=== PATIENT | female | born 1985 | race Hispanic/Latino ===

== ENCOUNTER 2018-01-09 20:05 | Emergency (ER) | payer SELFPAY ==
--- NOTE | 2018-01-09 20:25 | ER ---
Nurse's Notes [facility] Name: Carie Bhatt Age: 32 yrs Sex: Female : 1985 Arrival Date: 01/09/2018 Time: 20:05 Bed Waiting Private MD: Diagnosis: Presentation: 01/09 20:12 Presenting complaint: Patient states: head pressure x 1week, blurry vision, states pain lp1 behind left eye; sensitivity to light;. Transition of care: patient was not received from another setting of care. Onset of symptoms was January 09, 2018. Care prior to arrival: None. 20:12 Method Of Arrival: Ambulatory lp1 20:12 Acuity: PATRICIA 3 lp1 Triage Assessment: 20:21 General: Appears in no apparent distress. Behavior is appropriate for age. Pain: lp1 Complains of pain in left eye, head Pain currently is 5 out of 10 on a pain scale. Neuro: Level of Consciousness is awake, alert, obeys commands. Respiratory: Respiratory effort is even, unlabored. Derm: Skin is pink, warm \\T\\ dry. 20:21 General: Patient denies need to be seen by provider, states "I just wanted my blood lp1 pressure checked"; educated on seeing provider for further evaluation, patient denies need; . 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 - Social history:: Smoking status: Patient/guardian denies using tobacco. Screenin:16 Abuse screen: Denies threats or abuse. Denies injuries from another. Nutritional lp1 screening: No deficits noted. Tuberculosis screening: No symptoms or risk factors identified. Fall Risk None identified. Vital Signs: 20:14 BP 132 / 96; Pulse 103; Resp 18; Temp 98.9(O); Pulse Ox 98% on R/A; Weight 83.91 kg; lp1 Height 5 ft. 5 in. (165.10 cm); Pain 5/10; 20:14 Body Mass Index 30.79 (83.91 kg, 165.10 cm) lp1 ED Course: 20:05 Patient arrived in ED. ds1 20:14 Triage completed. lp1 20:14 Arm band placed on right wrist. lp1 Administered Medications: No medications were administered Outcome: 20:23 Eloped from waiting room, before seeing physician Time discovered patient gone: January lp1 2017 at 20:23 Patient provided with Sliding scale form for follow up evaluation and returning to ER if symptoms persist 20:25 Patient left the ED. lp1 Signatures: Nenita White ds1 Wanda Murphy, RN RN lp1
== END 2018-01-09 20:25 | disposition left against medical advice (07) ==
LOC: ER 20:05
DX: Z53.21 Procedure and treatment not carried out due to patient leaving prior to being seen by health care provider (principal)
CPT/HCPCS: 99281

== ENCOUNTER 2018-08-15 14:19 | Emergency (ER) | payer SELFPAY ==
--- NOTE | 2018-08-15 16:59 | EDPHYS ---
Physician Documentation [facility] Name: Carie Bhatt Age: 33 yrs Sex: Female : 1985 Arrival Date: 08/15/2018 Time: 14:21 Bed 11 Private MD: None, None ED Physician Carlos Sherman HPI: 08/15 16:55 This 33 yrs old Female presents to ER via Ambulatory with complaints of Sore jr8 Throat. 16:55 The patient presents with sore throat. The patient describes throat pain as constant. jr8 Onset: The symptoms/episode began/occurred gradually, 1 week(s) ago. Severity of symptoms: At their worst the symptoms were moderate, in the emergency department the symptoms are unchanged. Modifying factors: The symptoms are alleviated by nothing, the symptoms are aggravated by swallowing. Associated signs and symptoms: The patient has no apparent associated signs or symptoms. The patient has not experienced similar symptoms in the past. The patient has not recently seen a physician. 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 - Social history:: Smoking status: Patient/guardian denies using tobacco. - Ebola Screening: : Patient negative for fever greater than or equal to 101.5 degrees Fahrenheit, and additional compatible Ebola Virus Disease symptoms Patient denies exposure to infectious person Patient denies travel to an Ebola-affected area in the 21 days before illness onset No symptoms or risks identified at this time. ROS: 16:55 Eyes: Negative for injury, pain, redness, and discharge, Neck: Negative for injury, jr8 pain, and swelling, Cardiovascular: Negative for chest pain, palpitations, and edema, Respiratory: Negative for shortness of breath, cough, wheezing, and pleuritic chest pain, Abdomen/GI: Negative for abdominal pain, nausea, vomiting, diarrhea, and constipation, Back: Negative for injury and pain, MS/Extremity: Negative for injury and deformity, Skin: Negative for injury, rash, and discoloration, Neuro: Negative for headache, weakness, numbness, tingling, and seizure. 16:55 Constitutional: Positive for fever. 16:55 ENT: Positive for ear pain, sore throat. Exam: 16:55 Head/Face: Normocephalic, atraumatic. Eyes: Pupils equal round and reactive to light, jr8 extra-ocular motions intact. Lids and lashes normal. Conjunctiva and sclera are non-icteric and not injected. Cornea within normal limits. Periorbital areas with no swelling, redness, or edema. Neck: Trachea midline, no thyromegaly or masses palpated, and no cervical lymphadenopathy. Supple, full range of motion without nuchal rigidity, or vertebral point tenderness. No Meningismus. Cardiovascular: Regular rate and rhythm with a normal S1 and S2. No gallops, murmurs, or rubs. Normal PMI, no JVD. No pulse deficits. Respiratory: Lungs have equal breath sounds bilaterally, clear to auscultation and percussion. No rales, rhonchi or wheezes noted. No increased work of breathing, no retractions or nasal flaring. Abdomen/GI: Soft, non-tender, with normal bowel sounds. No distension or tympany. No guarding or rebound. No evidence of tenderness throughout. Back: No spinal tenderness. No costovertebral tenderness. Full range of motion. Skin: Warm, dry with normal turgor. Normal color with no rashes, no lesions, and no evidence of cellulitis. MS/ Extremity: Pulses equal, no cyanosis. Neurovascular intact. Full, normal range of motion. Neuro: Awake and alert, GCS 15, oriented to person, place, time, and situation. Cranial nerves II-XII grossly intact. Motor strength 5/5 in all extremities. Sensory grossly intact. Cerebellar exam normal. Normal gait. 16:55 ENT: External ear(s): are unremarkable, Ear canal(s): are normal, clear, TM's: are normal, no evidence of bulging, no dullness, no erythema, no fluid levels, no hemotympanum, no rupture, normal bony landmarks, normal mobility, Nose: External nose: no obvious acute abnormality, Nasal septum: is midline, Nasal mucosa: moist, Turbinates: are normal, Mouth: Lips: moist, Oral mucosa: pink and intact, moist, Gums: pink, Tongue: is moist, Posterior pharynx: Airway: patent, Tonsils: bilaterally enlarged, with erythema, with exudate, no ulcerations, Uvula: midline, non-edematous, no erythema, swelling, is not appreciated, erythema, that is mild. Vital Signs: 15:33 BP 124 / 86; Pulse 83; Resp 17; Temp 99.1(O); Pulse Ox 99% on R/A; Weight 79.38 kg; aj Height 5 ft. 4 in. (162.56 cm); 17:07 BP 117 / 74; Pulse 84; Resp 16; Pulse Ox 98% on R/A; la1 15:33 Body Mass Index 30.04 (79.38 kg, 162.56 cm) aj MDM: 16:02 Patient medically screened. cp 16:55 Data reviewed: vital signs, nurses notes, lab test result(s), and as a result, I will jr8 discharge patient. Data interpreted: Pulse oximetry: on room air is 99 %. Interpretation: normal. Counseling: I had a detailed discussion with the patient and/or guardian regarding: the historical points, exam findings, and any diagnostic results supporting the discharge/admit diagnosis, lab results, the need for outpatient follow up, a family practitioner, to return to the emergency department if symptoms worsen or persist or if there are any questions or concerns that arise at home. 08/15 15:34 Order name: Strep; Complete Time: 16:39 08/15 16:34 Order name: Throat Culture EDMS Administered Medications: 17:00 Drug: Decadron 10 mg Route: IM; Site: right gluteus; la1 17:07 Follow up: Response: No adverse reaction la1 Disposition: 08/15/18 16:58 Discharged to Home. Impression: Acute pharyngitis. - Condition is Stable. - Discharge Instructions: Pharyngitis. - Prescriptions for Augmentin 875- 125 mg Oral Tablet - take 1 tablet by ORAL route every 12 hours for 10 days; 20 tablet. - Medication Reconciliation Form, Thank You Letter, Antibiotic Education, Prescription Opioid Use form. - Follow up: Private Physician; When: 1 week; Reason: Recheck today's complaints, Continuance of care, Re-evaluation by your physician. - Problem is new. - Symptoms have improved. - Notes: Pseudoephedrine x4 days Addendum: 08/18/2018 06:56 Co-signature as Attending Physician, Carlos Lane MD I agree with the assessment and c yadav plan of care. Signatures: Dispatcher [employer] EDSole Fitch, RN Carlos Ramírez MD MD cha Roszak, Josh, PA PA jr8 Wdae Nassar RN RN la1 Carlos Blelamy PA PA cp Corrections: (The following items were deleted from the chart) 08/15 17:07 16:58 08/15/2018 16:58 Discharged to Home. Impression: Acute pharyngitis. Condition is la1 Stable. Forms are Medication Reconciliation Form, Thank You Letter, Antibiotic Education, Prescription Opioid Use. Follow up: Private Physician; When: 1 week; Reason: Recheck today's complaints, Continuance of care, Re-evaluation by your physician. Problem is new. Symptoms have improved. jr8
--- NOTE | 2018-08-15 16:59 | ER ---
Nurse's Notes [facility] Name: Carie Bhatt Age: 33 yrs Sex: Female : 1985 Arrival Date: 08/15/2018 Time: 14:21 Bed 11 Private MD: None, None Diagnosis: Acute pharyngitis Presentation: 08/15 15:32 Presenting complaint: Patient states: Sore throat and fever for 6 days. Bilaterally aj enlarged tonsils with white patchy exudate. Transition of care: patient was not received from another setting of care. Onset of symptoms was August 09, 2018. Risk Assessment: Do you want to hurt yourself or someone else? Patient reports no desire to harm self or others. Initial Sepsis Screen: Does the patient meet any 2 criteria? No. Patient's initial sepsis screen is negative. Does the patient have a suspected source of infection? No. Patient's initial sepsis screen is negative. Care prior to arrival: None. 15:32 Method Of Arrival: Ambulatory aj 15:32 Acuity: PATRICIA 4 aj Triage Assessment: 15:33 General: Appears in no apparent distress. uncomfortable, Behavior is calm, cooperative, aj appropriate for age. EENT: Throat has patchy exudate has enlarged tonsils bilaterally Reports pain when swallowing. Neuro: Level of Consciousness is awake, alert, obeys commands, Oriented to person, place, time, situation, Appropriate for age. Respiratory: Airway is patent Respiratory effort is even, unlabored, Respiratory pattern is regular, symmetrical. Derm: Skin is intact, is healthy with good turgor, Skin is pink, warm \T\ dry. normal. 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 - Social history:: Smoking status: Patient/guardian denies using tobacco. - Ebola Screening: : Patient negative for fever greater than or equal to 101.5 degrees Fahrenheit, and additional compatible Ebola Virus Disease symptoms Patient denies exposure to infectious person Patient denies travel to an Ebola-affected area in the 21 days before illness onset No symptoms or risks identified at this time. Screenin:54 Abuse screen: Denies threats or abuse. Nutritional screening: No deficits noted. la1 Tuberculosis screening: No symptoms or risk factors identified. Fall Risk None identified. Assessment: 16:53 General: Appears in no apparent distress. Behavior is calm, cooperative. Pain: la1 Complains of pain in throat. Neuro: Level of Consciousness is awake, alert, obeys commands. Cardiovascular: Capillary refill < 3 seconds Patient's skin is warm and dry. Respiratory: Airway is patent Respiratory effort is even, unlabored, Respiratory pattern is regular, symmetrical, Breath sounds are clear bilaterally. GI: No signs and/or symptoms were reported involving the gastrointestinal system. : No signs and/or symptoms were reported regarding the genitourinary system. Vital Signs: 15:33 BP 124 / 86; Pulse 83; Resp 17; Temp 99.1(O); Pulse Ox 99% on R/A; Weight 79.38 kg; aj Height 5 ft. 4 in. (162.56 cm); 17:07 BP 117 / 74; Pulse 84; Resp 16; Pulse Ox 98% on R/A; la1 15:33 Body Mass Index 30.04 (79.38 kg, 162.56 cm) aj ED Course: 14:21 Patient arrived in ED. mr 14:21 None, None is Private Physician. mr 15:33 Triage completed. aj 15:33 Arm band placed on left wrist. Patient placed in waiting room, Patient notified of wait aj time. Labs ordered per protocol. 16:02 Carlos Bellamy PA is PHCP. cp 16:02 Carlos Sherman MD is Attending Physician. cp 16:39 Hair Laguna PA is PHCP. jr8 16:39 Carlos Sherman MD is Attending Physician. jr8 16:53 Wade Nassar, DERECK is Primary Nurse. la1 16:54 Call light in reach. la1 17:07 No provider procedures requiring assistance completed. Patient did not have IV access la1 during this emergency room visit. Administered Medications: 17:00 Drug: Decadron 10 mg Route: IM; Site: right gluteus; la1 17:07 Follow up: Response: No adverse reaction la1 Outcome: 16:58 Discharge ordered by . jrPetra 17:07 Discharged to home ambulatory. la1 17:07 Condition: stable 17:07 Discharge instructions given to patient, Instructed on discharge instructions, follow up and referral plans. medication usage, Demonstrated understanding of instructions, follow-up care, medications, Prescriptions given X 1. 17:07 Patient left the ED. la1 Signatures: Sole Larson, RN Carmen Cabello mr Hair Laguna PA PA jr8 Wade Nassar RN RN la1 Carlos Bellamy PA PA cp
[2018-08-15] MEDS ORDERED: DEXAMETHASONE 4 MG/ML VIAL ONE (17:08)
== END 2018-08-15 17:07 | disposition home or self-care (01) ==
LOC: ER 14:19
DX: J02.9 Acute pharyngitis, unspecified (principal); I10 Essential (primary) hypertension
CPT/HCPCS: 87070; 87081; 96372; 99283